=== PATIENT | female | born 1995 | race Caucasian/White ===

== ENCOUNTER 2016-10-25 09:46 | Emergency (ER) | payer BC, OTHER ==
[~2016-10-25] VITALS: Ht 154.9 cm; Wt 55.0 kg
[2016-10-25 09:52] VITALS: Ht 154.9 cm; Wt 55.0 kg
[2016-10-25] MEDS: KETOROLAC 30 MG INJ IV STA ×2 (10:34→11:02)
[2016-10-25 10:46] LABS: BASOPHIL # 0.1 10^3/ul (0.0-0.1); BASOPHILS % 0.8 % (0.0-2.0); EOSINOPHILS % 0.5 % (0.0-7.0); HEMATOCRIT 38.4 % (37.0-47.0); HEMOGLOBIN 13.4 g/dl (12.0-16.0); LYMPHOCYTES # 1.3 10^3/ul (0.8-2.9); LYMPHOCYTES % 16.4 % (15.0-51.0); MEAN CORPUSCULAR HEMOGLOBIN 34.4 pg (29.0-33.0); MEAN CORPUSCULAR HGB CONC 34.9 g/dl (32.0-37.0); MEAN CORPUSCULAR VOLUME 98.7 fl (82.0-101.0); MEAN PLATELET VOLUME 10.4 fl (7.4-10.4); MONOCYTE # 0.4 10^3/ul (0.3-0.9); MONOCYTES % 4.8 % (0.0-11.0); NEUTROPHIL # 6.1 10^3/ul (1.6-7.5); NEUTROPHILS % 77.2 % (39.0-77.0); PLATELET COUNT 255 10^3/UL (140-415); RED BLOOD COUNT 3.89 10^6/ul (4.20-5.40); RED CELL DISTRIBUTION WIDTH 12.5 % (11.5-14.5); WHITE BLOOD COUNT 7.9 10^3/ul (4.8-10.8)
--- NOTE | 2016-10-25 10:54 | RADRPT ---
PROCEDURE: Retroperitoneal ultrasound. CLINICAL INDICATION: Left flank pain, history of renal calculi. TECHNIQUE: [place] scale and color doppler ultrasound images of the retroperitoneum, kidneys, urinary bladder COMPARISON: No prior studies are available for comparison. FINDINGS: Right kidney 10.0 cm in length. Right renal cortical thickness is preserved. Left kidney 10.3 cm in length. Left renal cortical thickness is preserved. Normal echogenicity. No hydronephrosis. No renal calculi. No focal lesions. Bladder: No focal lesions. IMPRESSION: No sonographic evidence of renal calculi or hydronephrosis. Normal examination. RPTAT: AADD .Nico Martínez MD, MD Date Time Electronically viewed and signed by .Nico Martínez MD, on 10/25/2016 10:54 .B/
[2016-10-25 11:02] LABS: ADD UMIC YES; UR ASCORBIC ACID NEGATIVE (NEGATIVE); UR BILIRUBIN (Dip) NEGATIVE (NEGATIVE); UR BLOOD (Dip) 3+ mg/dL (NEGATIVE); UR BUDDING YEAST FEW /HPF (NONE SEEN); UR CLARITY CLOUDY (CLEAR); UR COLOR YELLOW (YELLOW); UR GLUCOSE (Dip) NEGATIVE (NEGATIVE); UR KETONES (Dip) NEGATIVE (NEGATIVE); UR LEUKOCYTE ESTERASE (Dip) NEGATIVE Leu/ul (NEGATIVE); UR MUCUS MODERATE /HPF (NONE SEEN); UR NITRITE (Dip) NEGATIVE (NEGATIVE); UR RBC > 182 /HPF (0-5); UR SPECIFIC GRAVITY (Dip) 1.024 (1.003-1.030); UR SQUAMOUS EPITHELIAL CELL FEW /HPF (FEW); UR TOTAL PROTEIN (Dip) 1+ mg/dl (NEGATIVE); UR UROBILINOGEN (Dip) NEGATIVE (NEGATIVE)
[2016-10-25 11:08] LABS: ALBUMIN 4.7 g/dl (3.3-4.9); ALBUMIN/GLOBULIN RATIO 1.42; BILIRUBIN,INDIRECT 0.7 mg/dl (0-1.1); BILIRUBIN,TOTAL 0.7 mg/dl (0.2-1.3); CREATININE 0.73 mg/dl (0.44-1.00); POTASSIUM 4.1 mmol/L (3.5-5.1)
--- NOTE | 2016-10-25 11:26 | RADRPT ---
PROCEDURE: US Pelvis CLINICAL INDICATION: left pelvic pain TECHNIQUE: Multiple sonographic images of the pelvis were obtained utilizing a transabdominal and endovaginal technique. The images were reviewed on a PACS workstation. COMPARISON: None. LMP: 10/19/2016 FINDINGS: The uterus measures 7.3 x 3.1 x 3.6 cm. The endometrial echo complex measures 5 mm in thickness. T he uterus is heterogeneous and the junctional zone between the endometrium and myometrium is indisti nct. The right ovary measures 3.6 x 1.9 x 2.7 cm. The left ovary measures 3.1 x 1.7 x 2.5 cm. There is no rmal vascular flow in both ovaries. No significant ovarian lesions are seen. There is mild pelvic free fluid. IMPRESSION: The uterus is heterogeneous and the junctional zone between the endometrium and myometrium is indist inct. Clinical correlation for adenomyosis is recommended. Bilateral ovaries and adnexa are unremarkable. RPTAT: EE Physician Asim Date Time Electronically viewed and signed by Physician Asim on 10/25/2016 11:25 /
[2016-10-25] MEDS ORDERED: IBUP800T25 PO (11:34)
[2016-10-25 11:47] VITALS: BP 119/61; PULSE 57; RESP 18; TEMP 98.1
--- NOTE | 2016-10-25 11:55 | ERD ---
ER Documentation Chief Complaint Date/Time DATE: 10/25/16 TIME: 11:41 Chief Complaint CAME IN VIA INTAKE DUE TO LEFT PELVIC PAIN, HX OF KIDNEY STONES HPI 21-year-old female with history of kidney stone is complaining of left pelvic pain since this morning. Patient stated the pain had sudden onset is constant and sharp. Pain is growing in intensity over time. She has nausea but no vomiting. Patient stated that this feels similar to previous kidney stone pain. LMP was 10/19/2016. Denies fever or chills. Denies dysuria. Denies vaginal bleeding. Denies diarrhea or constipation. ROS All systems reviewed and are negative except as per history of present illness. Medications Home Meds Active Scripts Ibuprofen* (Motrin*) 800 Mg Tab, 800 MG PO Q6H Y for PAIN AND OR ELEVATED TEMP, #30 TAB Prov:ANATOLYSTANISLAV. CANINE DEPUTY 10/25/16 Allergies Allergies: Coded Allergies: No Known Allergy (Verified , 10/25/16) PMhx/Soc History of Surgery: Yes (adenoid) Anesthesia Reaction: No Hx Neurological Disorder: No Hx Respiratory Disorders: Yes (asthma) Hx Cardiac Disorders: No Hx Psychiatric Problems: No Hx Miscellaneous Medical Probl: No Hx Alcohol Use: Yes Hx Substance Use: No Hx Tobacco Use: No Smoking Status: Never smoker Physical Exam Vitals Vital Signs Date Time Temp Pulse Resp B/P Pulse Ox O2 Delivery O2 Flow Rate FiO2 10/25/16 09:52 98.4 58 18 121/83 98 Physical Exam General: Well-developed, well-nourished, conscious and coherent, in no distress Skin: Warm and dry without rash, good texture and turgor Head: Normocephalic without evidence of trauma Eyes: Sclera and conjunctivae normal; pupils equal, round, and reactive to light; extraocular movements are intact Chest: Normal AP diameter. Good expansion without retractions. Nontender. Lungs are clear to auscultate bilaterally with good tidal volume Heart: Regular rate and rhythm. No murmur, rub, or gallops heard Abdomen: Soft and nontender without masses, guarding, or rebound. Bowel sounds are active. No hepatosplenomegaly Back: Without spinal or CVA tenderness Pelvis: Left pelvic tenderness without rebound or guarding. Extremities: Full range of motion. Good strength bilaterally. No clubbing, cyanosis, or edema. Peripheral pulses are intact. Sensation intact Neuro: Alert and oriented 4, GCS 15. Cranial nerves grossly intact. Motor and sensory exams nonfocal. Moves all extremities. Speech clear. Gait normal Result Diagram: 10/25/16 1030 10/25/16 1030 Results 24 hrs Laboratory Tests Test 10/25/16 10:30 White Blood Count 7.910^3/ul Red Blood Count 3.8910^6/ul Hemoglobin 13.4g/dl Hematocrit 38.4% Mean Corpuscular Volume 98.7fl Mean Corpuscular Hemoglobin 34.4pg Mean Corpuscular Hemoglobin Concent 34.9g/dl Red Cell Distribution Width 12.5% Platelet Count 59668^3/UL Mean Platelet Volume 10.4fl Neutrophils % 77.2% Lymphocytes % 16.4% Monocytes % 4.8% Eosinophils % 0.5% Basophils % 0.8% Nucleated Red Blood Cells % 0.0/100WBC Neutrophils # 6.110^3/ul Lymphocytes # 1.310^3/ul Monocytes # 0.410^3/ul Eosinophils # 0.010^3/ul Basophils # 0.110^3/ul Nucleated Red Blood Cells # 0.010^3/ul Urine Color YELLOW Urine Clarity CLOUDY Urine pH 5.0 Urine Specific [place] 1.024 Urine Ketones NEGATIVEmg/dL Urine Nitrite NEGATIVEmg/dL Urine Bilirubin NEGATIVEmg/dL Urine Urobilinogen NEGATIVEmg/dL Urine Leukocyte Esterase NEGATIVELeu/ul Urine Microscopic RBC > 182/HPF Urine Microscopic WBC 12/HPF Urine Squamous Epithelial Cells FEW/HPF Urine Mucus MODERATE/HPF Urine Yeast (Budding) FEW/HPF Urine Hemoglobin 3+mg/dL Urine Glucose NEGATIVEmg/dL Urine Total Protein 1+mg/dl Sodium Level 143mmol/L Potassium Level 4.1mmol/L Chloride Level 102mmol/L Carbon Dioxide Level 25mmol/L Anion Gap 20 Blood Urea Nitrogen 20mg/dl Creatinine 0.73mg/dl Glucose Level 100mg/dl Calcium Level 10.0mg/dl Total Bilirubin 0.7mg/dl Direct Bilirubin 0.00mg/dl Indirect Bilirubin 0.7mg/dl Aspartate Amino Transf (AST/SGOT) 30IU/L Alanine Aminotransferase (ALT/SGPT) 27IU/L Alkaline Phosphatase 72IU/L Total Protein 8.0g/dl Albumin 4.7g/dl Globulin 3.30g/dl Albumin/Globulin Ratio 1.42 Lipase 84U/L Current Medications Medications (Trade) Dose Ordered Sig/Misha Route PRN Reason Start Time Stop Time Status Last Admin Dose Admin Ketorolac Tromethamine (Toradol) 30 mg ONCE STAT IV 10/25/16 10:06 10/25/16 10:10 DC 10/25/16 11:02 PROCEDURE: Retroperitoneal ultrasound. CLINICAL INDICATION: Left flank pain, history of renal calculi. TECHNIQUE: [place] scale and color doppler ultrasound images of the retroperitoneum, kidneys, urinary bladder COMPARISON: No prior studies are available for comparison. FINDINGS: Right kidney 10.0 cm in length. Right renal cortical thickness is preserved. Left kidney 10.3 cm in length. Left renal cortical thickness is preserved. Normal echogenicity. No hydronephrosis. No renal calculi. No focal lesions. Bladder: No focal lesions. IMPRESSION: No sonographic evidence of renal calculi or hydronephrosis. Normal examination. RPTAT: AADD .Nico Martínez MD, MD Date Time Electronically viewed and signed by .Nico Martínez MD, MD on 10/25/2016 10:54 .B/ CC: STANISLAV LEDBETTER NP PROCEDURE: US Pelvis CLINICAL INDICATION: left pelvic pain TECHNIQUE: Multiple sonographic images of the pelvis were obtained utilizing a transabdominal and endovaginal technique. The images were reviewed on a PACS workstation. COMPARISON: None. LMP: 10/19/2016 FINDINGS: The uterus measures 7.3 x 3.1 x 3.6 cm. The endometrial echo complex measures 5 mm in thickness. The uterus is heterogeneous and the junctional zone between the endometrium and myometrium is indistinct. The right ovary measures 3.6 x 1.9 x 2.7 cm. The left ovary measures 3.1 x 1.7 x 2.5 cm. There is normal vascular flow in both ovaries. No significant ovarian lesions are seen. There is mild pelvic free fluid. IMPRESSION: The uterus is heterogeneous and the junctional zone between the endometrium and myometrium is indistinct. Clinical correlation for adenomyosis is recommended. Bilateral ovaries and adnexa are unremarkable. RPTAT: EE Kirill Akers Physician Date Time Electronically viewed and signed by Kirill Akers Physician on 10/25/2016 11:25 RA/ CC: STANISLAV LEDBETTER CANINE DEPUTY Procedures/MDM Well-appearing 21-year-old female with history of kidney stones presented ED was left pelvic pain 1 day. Urine test is negative, I doubt ectopic . CBC, CMP, and lipase are unremarkable. UA has 3+ hemoglobin, greater than 182 RBC, otherwise unremarkable. Renal ultrasound is negative for has no evidence of renal calculi or hydronephrosis. Pelvic ultrasound shows unremarkable ovaries and adnexa. Heterogeneous uterus with indistinct junction zone between endometrium and myometrium, concerning for adenomyosis. Patient is given Toradol 30 mg IV in the ED for pain. Patient reports much improved pain after Toradol. I suspect patient's pain is due to urolithiasis. I doubt ovarian torsion or ruptured ovarian cyst. Patient appears well, stable for discharge and outpatient management. Medical decision making shared with patient and family. Education provided to patient and family. Patient and family expressed understanding of the plan. Medications on discharge: Ibuprofen. Follow-up: Primary care provider in 2-3 days or return to ED if worse. Disclaimer: Inadvertent spelling and grammatical errors are likely due to EHR/ dictation software use and do not reflect on the overall quality of patient care. Also, please note that the electronic time recorded on this note does not necessarily reflect the actual time of the patient encounter. Departure Diagnosis: Primary Impression: Acute pain in female pelvis Condition: Stable Patient Instructions: Pelvic Pain, Unknown Cause, Kidney Stone W/ Colic Referrals: DOCTOR,NOT ON STAFF (PCP) COMM[facility]ITY [facility] YOU HAVE RECEIVED A MEDICAL SCREENING EXAM AND THE RESULTS INDICATE THAT YOU DO NOT HAVE A CONDITION THAT REQUIRES URGENT TREATMENT IN THE EMERGENCY DEPARTMENT. FURTHER EVALUATION AND TREATMENT OF YOUR CONDITION CAN WAIT UNTIL YOU ARE SEEN IN YOUR DOCTORS OFFICE WITHIN THE NEXT 1-2 DAYS. IT IS YOUR RESPONSIBILITY TO MAKE AN APPOINTMENT FOR FOLOW-UP CARE. IF YOU HAVE A PRIMARY DOCTOR --you should call your primary doctor and schedule an appointment IF YOU DO NOT HAVE A PRIMARY DOCTOR YOU CAN CALL OUR PHYSICIAN REFERRAL HOTLINE AT IF YOU CAN NOT AFFORD TO SEE A PHYSICIAN YOU CAN CHOSE FROM THE FOLLOWING [facility] [address] [facility] [address] [facility] [address] [facility] [address] [facility]. [facility] [address], [facility]. [facility]. [address] Additional Instructions: Call your primary care doctor TOMORROW for an appointment during the next 2-3 days.See the doctor sooner or return here if your condition worsens before your appointment time. STANISLAV LEDBETTER NP Oct 25, 2016 11:51
== END 2016-10-25 11:48 | disposition home or self-care (01) ==
LOC: FTE 09:46
DX: R10.2 Pelvic and perineal pain (principal); J45.909 Unspecified asthma, uncomplicated
CPT/HCPCS: 36415; 76775; 76830; 76856; 80053; 81001; 83690; 85025; 96374; J1885; Z7502

== ENCOUNTER 2016-11-02 19:03 | Emergency (ER) | END 2016-11-02 22:12 | disposition home or self-care (01) | DX: N20.0 Calculus of kidney (principal); J45.909 Unspecified asthma, uncomplicated | CPT/HCPCS: 36415; 76775; 76830; 76856; 80053; 81001; 83690; 85025; 96374; 96375; 96376; J1885; J2270; J2405; J7030; Z7502 ==

== ENCOUNTER 2016-12-30 10:55 | Emergency (ER) | payer OTHER ==
[~2016-12-30] VITALS: Ht 154.9 cm; Wt 55.0 kg
[~2016-12-30 10:55] MED LIST: HYDR-906 PO; IBUP800T25 PO; ONDA4TAB14 PO; TAMS-14 PO
[2016-12-30 11:12] VITALS: Ht 154.9 cm; Wt 55.0 kg
[2016-12-30] MEDS ORDERED: KETOROLAC 30 MG INJ IV STA (11:35)
[2016-12-30] MEDS ORDERED: morphine 4 MG/ML VIAL IV STA ×2 (11:35→14:37)
[2016-12-30] MEDS ORDERED: ONDANSETRON 4 MG INJ IV STA (11:35)
[2016-12-30] MEDS ORDERED: SOD CHLORIDE 0.9% 1,000 ML IV STA (11:35)
[2016-12-30 12:08] LABS: BASOPHIL # 0.1 10^3/ul (0.0-0.1); BASOPHILS % 0.7 % (0.0-2.0); EOSINOPHILS % 0.4 % (0.0-7.0); HEMATOCRIT 39.6 % (37.0-47.0); HEMOGLOBIN 13.3 g/dl (12.0-16.0); LYMPHOCYTES # 2.1 10^3/ul (0.8-2.9); LYMPHOCYTES % 21.1 % (15.0-51.0); MEAN CORPUSCULAR HEMOGLOBIN 32.8 pg (29.0-33.0); MEAN CORPUSCULAR HGB CONC 33.6 g/dl (32.0-37.0); MEAN CORPUSCULAR VOLUME 97.5 fl (82.0-101.0); MEAN PLATELET VOLUME 10.2 fl (7.4-10.4); MONOCYTE # 0.6 10^3/ul (0.3-0.9); MONOCYTES % 5.7 % (0.0-11.0); NEUTROPHIL # 7.1 10^3/ul (1.6-7.5); NEUTROPHILS % 71.4 % (39.0-77.0); PLATELET COUNT 262 10^3/UL (140-415); RED BLOOD COUNT 4.06 10^6/ul (4.20-5.40); RED CELL DISTRIBUTION WIDTH 12.4 % (11.5-14.5); WHITE BLOOD COUNT 9.9 10^3/ul (4.8-10.8)
[2016-12-30 12:28] LABS: ALBUMIN 4.8 g/dl (3.3-4.9); ALBUMIN/GLOBULIN RATIO 1.37; CALCIUM 9.8 mg/dl (8.4-10.2); CREATININE 0.8 mg/dl (0.44-1.00); POTASSIUM 3.9 mmol/L (3.5-5.1); TOTAL PROTEIN 8.3 g/dl (6.1-8.1)
[2016-12-30 13:04] LABS: ADD UMIC YES; UR ASCORBIC ACID 20 mg/dL (NEGATIVE); UR BACTERIA FEW /HPF (NONE SEEN); UR BILIRUBIN (Dip) NEGATIVE (NEGATIVE); UR BLOOD (Dip) 3+ mg/dL (NEGATIVE); UR BUDDING YEAST FEW /HPF (NONE SEEN); UR CLARITY CLOUDY (CLEAR); UR COLOR YELLOW (YELLOW); UR GLUCOSE (Dip) NEGATIVE (NEGATIVE); UR KETONES (Dip) NEGATIVE (NEGATIVE); UR LEUKOCYTE ESTERASE (Dip) NEGATIVE Leu/ul (NEGATIVE); UR MUCUS MODERATE /HPF (NONE SEEN); UR NITRITE (Dip) NEGATIVE (NEGATIVE); UR RBC 89 /HPF (0-5); UR SPECIFIC GRAVITY (Dip) 1.025 (1.003-1.030); UR SQUAMOUS EPITHELIAL CELL FEW /HPF (FEW); UR TOTAL PROTEIN (Dip) 1+ mg/dl (NEGATIVE); UR UROBILINOGEN (Dip) NEGATIVE (NEGATIVE)
--- NOTE | 2016-12-30 13:52 | RADRPT ---
PROCEDURE: XR Abdomen. CLINICAL INDICATION: Flank pain TECHNIQUE: Single frontal view of the abdomen was obtained. COMPARISON: Ultrasound from 11/02/2016 FINDINGS: The bowel gas pattern is normal. There is no evidence of obstruction. There are no air-fluid levels. There is a 3 mm calcification in the left lower pelvis. The left kidney is partially obscured by ove rlying bowel gas. The soft tissues are unremarkable. The osseous structures are unremarkable. RPTAT: AA IMPRESSION: 3 mm calcification in the left lower pelvis, may represent a left distal ureteral stone. Left kidney is partially obscured by overlying bowel gas. Further evaluation with CT is recommended. .Victoriano Rothman MD, MD Date Time Electronically viewed and signed by .Victoriano Rothman MD, on 12/30/2016 13:52 .S/
--- NOTE | 2016-12-30 14:13 | RADRPT ---
PROCEDURE: Retroperitoneal US. CLINICAL INDICATION: Flank pain TECHNIQUE: Multiple sonographic images of the kidneys and retroperitoneum were obtained. The imag es were reviewed on a PACS workstation. COMPARISON: US ABDOMEN 11/02/2016 FINDINGS: The kidneys are normal in size, contour, cortical thickness and cortical echogenicity. The right kidney measures 10.9 cm. The left kidney measures 11.1 cm. No kidney stones are visualized. There is questionable mild left-sided hydronephrosis. The urinary bladder is normal. RPTAT: AA IMPRESSION: Questionable mild left-sided hydronephrosis. .Victoriano Rothman MD, MD Date Time Electronically viewed and signed by .Victoriano Rothman MD, on 12/30/2016 14:12 .S/
[2016-12-30] MEDS ORDERED: TRAM50TA2 PO (14:25)
[2016-12-30] MEDS ORDERED: IBUP400T22 PO (14:25)
[2016-12-30] MEDS ORDERED: ONDA8TAB14 PO (14:25)
--- NOTE | 2016-12-30 14:33 | ERD ---
ER Documentation Chief Complaint Date/Time DATE: 12/30/16 TIME: 14:30 Chief Complaint LEFT SIDED FLANK PAIN WITH HX OF KIDNEY STONES HPI 21-year-old female presents with sudden onset left flank pain starting this morning. History significant for diagnosis of kidney stone twice in the last month. She denies any fevers or dysuria. She has had trouble getting referral from her primary doctor for urologist. She declined CT scans in the past and ultrasound showed possible 1 cm stone or shadowing on the last ultrasound. ROS All systems reviewed and are negative except as per history of present illness. Medications Home Meds Active Scripts Ibuprofen* (Motrin*) 400 Mg Tab, 400 MG PO Q6, #20 TAB Prov:PREMA QUINN MD 12/30/16 Tramadol HCl (Tramadol HCl) 50 Mg Tablet, 50 MG PO Q4 Y for PAIN, #20 TAB Prov:PREMA QUINN MD 12/30/16 Ondansetron (Ondansetron Odt) 8 Mg Tab.rapdis, 8 MG PO Q6H Y for NAUSEA AND/OR VOMITING, #10 TAB Prov:PREMA QUINN MD 12/30/16 Tamsulosin Hcl* (Flomax*) 0.4 Mg Cap.er.24h, 0.4 MG PO BID, #30 CAP Prov:YUNIER MAHAN PA-C 11/02/16 Ondansetron (Ondansetron Odt) 4 Mg Tab.rapdis, 4 MG PO Q6H Y for NAUSEA AND/OR VOMITING, #10 TAB Prov:YUNIER MAHAN PA-C 11/02/16 Hydrocodone/Acetaminophen ([place] 5-325 Tablet) 1 Each Tablet, 1 TAB PO Q6H Y for PAIN, #7 TAB Prov:YUNIER MAHAN PA-C 11/02/16 Ibuprofen* (Motrin*) 800 Mg Tab, 800 MG PO Q6H Y for PAIN AND OR ELEVATED TEMP, #30 TAB Prov:STANISLAV LEDBETTER NP 10/25/16 Allergies Allergies: Coded Allergies: No Known Allergy (Verified , 10/25/16) PMhx/Soc History of Surgery: Yes (adenoid) Anesthesia Reaction: No Hx Neurological Disorder: No Hx Respiratory Disorders: Yes (asthma) Hx Cardiac Disorders: No Hx Psychiatric Problems: No Hx Miscellaneous Medical Probl: No Hx Alcohol Use: Yes Hx Substance Use: No Hx Tobacco Use: No Physical Exam Vitals Vital Signs Date Time Temp Pulse Resp B/P Pulse Ox O2 Delivery O2 Flow Rate FiO2 12/30/16 13:19 98.3 57 16 108/58 99 Room Air 12/30/16 11:12 98.1 58 18 133/86 98 Physical Exam Const: [], uncomfortable but no apparent distress. Head: Atraumatic Eyes: Normal Conjunctiva ENT: Normal External Ears, Nose and Mouth. Neck: Full range of motion..~ No meningismus. Resp: Clear to auscultation bilaterally Cardio: Regular rate and rhythm, no murmurs Abd: Soft, non tender, non distended. Normal bowel sounds. No tenderness at McBurney's point no Schumacher sigN Skin: No petechiae or rashes Back: No midline enters. There is tenderness and left CVA and left mid abdomen. n. Ext: No cyanosis, or edema Neur: Awake and alert Psych: Normal Mood and Affect Result Diagram: 12/30/16 1145 12/30/16 1145 Results 24 hrs Laboratory Tests Test 12/30/16 11:45 White Blood Count 9.910^3/ul Red Blood Count 4.0610^6/ul Hemoglobin 13.3g/dl Hematocrit 39.6% Mean Corpuscular Volume 97.5fl Mean Corpuscular Hemoglobin 32.8pg Mean Corpuscular Hemoglobin Concent 33.6g/dl Red Cell Distribution Width 12.4% Platelet Count 95109^3/UL Mean Platelet Volume 10.2fl Neutrophils % 71.4% Lymphocytes % 21.1% Monocytes % 5.7% Eosinophils % 0.4% Basophils % 0.7% Nucleated Red Blood Cells % 0.0/100WBC Neutrophils # 7.110^3/ul Lymphocytes # 2.110^3/ul Monocytes # 0.610^3/ul Eosinophils # 0.010^3/ul Basophils # 0.110^3/ul Nucleated Red Blood Cells # 0.010^3/ul Urine Color YELLOW Urine Clarity CLOUDY Urine pH 5.0 Urine Specific [place] 1.025 Urine Ketones NEGATIVEmg/dL Urine Nitrite NEGATIVEmg/dL Urine Bilirubin NEGATIVEmg/dL Urine Urobilinogen NEGATIVEmg/dL Urine Leukocyte Esterase NEGATIVELeu/ul Urine Microscopic RBC 89/HPF Urine Microscopic WBC 8/HPF Urine Squamous Epithelial Cells FEW/HPF Urine Bacteria FEW/HPF Urine Mucus MODERATE/HPF Urine Yeast (Budding) FEW/HPF Urine Hemoglobin 3+mg/dL Urine Glucose NEGATIVEmg/dL Urine Total Protein 1+mg/dl Sodium Level 139mmol/L Potassium Level 3.9mmol/L Chloride Level 105mmol/L Carbon Dioxide Level 23mmol/L Anion Gap 15 Blood Urea Nitrogen 17mg/dl Creatinine 0.80mg/dl Glucose Level 127mg/dl Calcium Level 9.8mg/dl Total Bilirubin 1.0mg/dl Direct Bilirubin 0.00mg/dl Indirect Bilirubin 1.0mg/dl Aspartate Amino Transf (AST/SGOT) 27IU/L Alanine Aminotransferase (ALT/SGPT) 28IU/L Alkaline Phosphatase 81IU/L Total Protein 8.3g/dl Albumin 4.8g/dl Globulin 3.50g/dl Albumin/Globulin Ratio 1.37 Lipase 77U/L Current Medications Medications (Trade) Dose Ordered Sig/Misha Route PRN Reason Start Time Stop Time Status Last Admin Dose Admin Sodium Chloride (NS) 1,000 ml @ 1,000 mls/hr Q1H STAT IV 12/30/16 11:35 12/30/16 12:34 DC 12/30/16 11:58 Morphine Sulfate (morphine) 4 mg ONCE STAT IV 12/30/16 11:35 12/30/16 11:36 DC 12/30/16 11:59 Ondansetron HCl (Zofran Inj) 4 mg ONCE STAT IV 12/30/16 11:35 12/30/16 11:36 DC 12/30/16 11:58 Ketorolac Tromethamine (Toradol) 30 mg ONCE STAT IV 12/30/16 11:35 12/30/16 11:36 DC 12/30/16 11:58 Procedures/MDM IV was obtained. Patient was given Toradol 30 mg IV, morphine 4 mg IV and Zofran 4 mg IV. HCG is negative. CBC is normal CMP is normal. Urine shows hemoglobin without significant signs of infection and no glucose. Patient was given 1 L normal saline IV. Patient felt better after observation treatment. Left renal ultrasound shows mild hydronephrosis without identifiable stones. X-ray Abdomen 1V Interpreted by me: Free Air: [None] Bowel Gas: [Nonspecific] Soft Tissue: [Normal] possible 3 mm stone at the left UV junction.-Possible left 3 mm calculus at left UV junction. She presents with signs and symptoms of likely renal colic without signs of septic stone, signs of appendicitis or acute abdomen. She will treated with tramadol, Zofran, ibuprofen, instructions for fluids and neurology follow-up. She should return for fevers, vomiting, worsening pain, new worsening symptoms with primary care doctor this week. The patient was stable with no new complaints during the ER course. Clinically, there is no current evidence to suggest meningitis, sepsis, acute abdomen, pneumonia, acute coronary syndrome, pulmonary embolism, or any other emergent condition appearing to require further evaluation or hospitalization. The patient should certainly return for any new or worsening symptoms per the aftercare instructions. They should otherwise follow-up with her primary care doctor for reevaluation this week. Departure Diagnosis: Primary Impression: Renal colic Additional Impression: Flank pain Condition: Stable Patient Instructions: Kidney Stone W/ Colic Referrals: VAIBHAV DE ANDA MD,CHRISTY DARNELL,PAULY Mohan MD Additional Instructions: X-ray shows possible 3 mm stone in the left distal ureter. Recheck for fevers, vomiting, worsening pain. See urology for follow-up. Drink plenty of fluids at home. PREMA QUINN MD Dec 30, 2016 14:33
[2016-12-30 15:35] VITALS: BP 99/50; PULSE 61; RESP 17; TEMP 98.7
== END 2016-12-30 15:42 | disposition home or self-care (01) ==
LOC: FTE 10:55
DX: N23 Unspecified renal colic (principal); J45.909 Unspecified asthma, uncomplicated
CPT/HCPCS: 36415; 74000; 76775; 80053; 81001; 83690; 85025; 96374; 96375; 96376; J1885; J2270; J2405; J7030; Z7502

== ENCOUNTER 2017-01-07 23:47 | Emergency (ER) | payer OTHER ==
[~2017-01-07] VITALS: Ht 154.9 cm; Wt 55.0 kg
[~2017-01-07 23:47] MED LIST changes: +IBUP400T22 PO; +ONDA8TAB14 PO; +TRAM50TA2 PO
[2017-01-07 23:54] VITALS: Ht 154.9 cm; Wt 55.0 kg
[2017-01-08] MEDS ORDERED: ONDANSETRON 4 MG INJ IV STA (02:29)
[2017-01-08] MEDS ORDERED: KETOROLAC 30 MG INJ IV STA (02:29)
[2017-01-08] MEDS ORDERED: morphine 4 MG/ML VIAL IV STA (02:29)
[2017-01-08] MEDS ORDERED: SOD CHLORIDE 0.9% 1,000 ML IV STA (02:29)
[2017-01-08 02:34] VITALS: TEMP 98.7
[2017-01-08 02:58] LABS: BASOPHIL # 0.1 10^3/ul (0.0-0.1); BASOPHILS % 0.4 % (0.0-2.0); EOSINOPHILS % 0.1 % (0.0-7.0); HEMATOCRIT 37.3 % (37.0-47.0); HEMOGLOBIN 13.3 g/dl (12.0-16.0); LYMPHOCYTES # 1.6 10^3/ul (0.8-2.9); LYMPHOCYTES % 10.1 % (15.0-51.0); MEAN CORPUSCULAR HEMOGLOBIN 34.2 pg (29.0-33.0); MEAN CORPUSCULAR HGB CONC 35.7 g/dl (32.0-37.0); MEAN CORPUSCULAR VOLUME 95.9 fl (82.0-101.0); MEAN PLATELET VOLUME 10.6 fl (7.4-10.4); MONOCYTE # 1.4 10^3/ul (0.3-0.9); MONOCYTES % 8.8 % (0.0-11.0); NEUTROPHIL # 12.7 10^3/ul (1.6-7.5); NEUTROPHILS % 80.2 % (39.0-77.0); PLATELET COUNT 308 10^3/UL (140-415); RED BLOOD COUNT 3.89 10^6/ul (4.20-5.40); RED CELL DISTRIBUTION WIDTH 11.9 % (11.5-14.5); WHITE BLOOD COUNT 15.9 10^3/ul (4.8-10.8)
[2017-01-08 03:06] LABS: ADD UMIC YES; UR ASCORBIC ACID 40 mg/dL (NEGATIVE); UR BACTERIA FEW /HPF (NONE SEEN); UR BILIRUBIN (Dip) NEGATIVE (NEGATIVE); UR BLOOD (Dip) 2+ mg/dL (NEGATIVE); UR CLARITY SLIGHTLY CLOUDY (CLEAR); UR COLOR YELLOW (YELLOW); UR GLUCOSE (Dip) NEGATIVE (NEGATIVE); UR KETONES (Dip) 1+ mg/dL (NEGATIVE); UR LEUKOCYTE ESTERASE (Dip) NEGATIVE Leu/ul (NEGATIVE); UR MUCUS MANY /HPF (NONE SEEN); UR NITRITE (Dip) NEGATIVE (NEGATIVE); UR RBC 50 /HPF (0-5); UR SQUAMOUS EPITHELIAL CELL FEW /HPF (FEW); UR TOTAL PROTEIN (Dip) 1+ mg/dl (NEGATIVE); UR UROBILINOGEN (Dip) NEGATIVE (NEGATIVE)
[2017-01-08 03:22] LABS: ALBUMIN 4.8 g/dl (3.3-4.9); ALBUMIN/GLOBULIN RATIO 1.29; BILIRUBIN,INDIRECT 0.7 mg/dl (0-1.1); BILIRUBIN,TOTAL 0.7 mg/dl (0.2-1.3); CREATININE 1.15 mg/dl (0.44-1.00); POTASSIUM 4.2 mmol/L (3.5-5.1); TOTAL PROTEIN 8.5 g/dl (6.1-8.1)
--- NOTE | 2017-01-08 05:17 | ERD ---
ER Documentation Chief Complaint Date/Time DATE: 01/08/17 TIME: 05:16 Chief Complaint c/o left side flank pain x 2 hrs. Hx of kidney stones. HPI 21-year-old female comes in with left-sided appointment for 2 hours. Patient history of kidney stones and has decided to have [facility]. She denies any fevers or chills. She has mild nausea but no vomiting. Pain is mild to moderate intensity in the left flank that radiates down to her groin. ROS All systems reviewed and are negative except as per history of present illness. Medications Home Meds Active Scripts Ibuprofen* (Motrin*) 400 Mg Tab, 400 MG PO Q6, #20 TAB Prov:PREMA QUINN MD 12/30/16 Tramadol HCl (Tramadol HCl) 50 Mg Tablet, 50 MG PO Q4 Y for PAIN, #20 TAB Prov:PREMA QUINN MD 12/30/16 Ondansetron (Ondansetron Odt) 8 Mg Tab.rapdis, 8 MG PO Q6H Y for NAUSEA AND/OR VOMITING, #10 TAB Prov:PREMA QUINN MD 12/30/16 Tamsulosin Hcl* (Flomax*) 0.4 Mg Cap.er.24h, 0.4 MG PO BID, #30 CAP Prov:YUNIER MAHAN PA-C 11/02/16 Ondansetron (Ondansetron Odt) 4 Mg Tab.rapdis, 4 MG PO Q6H Y for NAUSEA AND/OR VOMITING, #10 TAB Prov:YUNIER MAHAN PA-C 11/02/16 Hydrocodone/Acetaminophen ([place] 5-325 Tablet) 1 Each Tablet, 1 TAB PO Q6H Y for PAIN, #7 TAB Prov:YUNIER MAHAN PA-C 11/02/16 Ibuprofen* (Motrin*) 800 Mg Tab, 800 MG PO Q6H Y for PAIN AND OR ELEVATED TEMP, #30 TAB Prov:STANISLAV LEDBETTER NP 10/25/16 Allergies Allergies: Coded Allergies: No Known Allergy (Verified , 10/25/16) PMhx/Soc History of Surgery: Yes (adenoid) Anesthesia Reaction: No Hx Neurological Disorder: No Hx Respiratory Disorders: Yes (asthma) Hx Cardiac Disorders: No Hx Psychiatric Problems: Yes (Kidney stones) Hx Miscellaneous Medical Probl: No Hx Alcohol Use: Yes Hx Substance Use: No Hx Tobacco Use: No Smoking Status: Never smoker Physical Exam Vitals Vital Signs Date Time Temp Pulse Resp B/P Pulse Ox O2 Delivery O2 Flow Rate FiO2 01/08/17 02:34 98.7 74 16 107/55 98 Room Air 01/07/17 23:54 98.3 75 18 137/71 97 Physical Exam Const: [] Head: Atraumatic Eyes: Normal Conjunctiva ENT: Normal External Ears, Nose and Mouth. Neck: Full range of motion..~ No meningismus. Resp: Clear to auscultation bilaterally Cardio: Regular rate and rhythm, no murmurs Abd: Soft, non tender, non distended. Normal bowel sounds Skin: No petechiae or rashes Back: No midline or flank tenderness Ext: No cyanosis, or edema Neur: Awake and alert Psych: Normal Mood and Affect Result Diagram: 01/08/1722401/08/17224 Results 24 hrs Laboratory Tests Test 01/08/17 02:25 White Blood Count 15.910^3/ul Red Blood Count 3.8910^6/ul Hemoglobin 13.3g/dl Hematocrit 37.3% Mean Corpuscular Volume 95.9fl Mean Corpuscular Hemoglobin 34.2pg Mean Corpuscular Hemoglobin Concent 35.7g/dl Red Cell Distribution Width 11.9% Platelet Count 95763^3/UL Mean Platelet Volume 10.6fl Neutrophils % 80.2% Lymphocytes % 10.1% Monocytes % 8.8% Eosinophils % 0.1% Basophils % 0.4% Nucleated Red Blood Cells % 0.0/100WBC Neutrophils # 12.710^3/ul Lymphocytes # 1.610^3/ul Monocytes # 1.410^3/ul Eosinophils # 0.010^3/ul Basophils # 0.110^3/ul Nucleated Red Blood Cells # 0.010^3/ul Urine Color YELLOW Urine Clarity SLIGHTLY CLOUDY Urine pH 5.0 Urine Specific [place] 1.030 Urine Ketones 1+mg/dL Urine Nitrite NEGATIVEmg/dL Urine Bilirubin NEGATIVEmg/dL Urine Urobilinogen NEGATIVEmg/dL Urine Leukocyte Esterase NEGATIVELeu/ul Urine Microscopic RBC 50/HPF Urine Microscopic WBC 8/HPF Urine Squamous Epithelial Cells FEW/HPF Urine Bacteria FEW/HPF Urine Mucus MANY/HPF Urine Hemoglobin 2+mg/dL Urine Glucose NEGATIVEmg/dL Urine Total Protein 1+mg/dl Sodium Level 141mmol/L Potassium Level 4.2mmol/L Chloride Level 104mmol/L Carbon Dioxide Level 21mmol/L Anion Gap 20 Blood Urea Nitrogen 23mg/dl Creatinine 1.15mg/dl Glucose Level 106mg/dl Calcium Level 10.0mg/dl Total Bilirubin 0.7mg/dl Direct Bilirubin 0.00mg/dl Indirect Bilirubin 0.7mg/dl Aspartate Amino Transf (AST/SGOT) 29IU/L Alanine Aminotransferase (ALT/SGPT) 28IU/L Alkaline Phosphatase 84IU/L Total Protein 8.5g/dl Albumin 4.8g/dl Globulin 3.70g/dl Albumin/Globulin Ratio 1.29 Lipase 60U/L Current Medications Medications (Trade) Dose Ordered Sig/Misha Route PRN Reason Start Time Stop Time Status Last Admin Dose Admin Sodium Chloride (NS) 1,000 ml @ 1,000 mls/hr Q1H STAT IV 01/08/17 02:29 01/08/17 03:28 DC 01/08/17 02:46 Morphine Sulfate (morphine) 4 mg ONCE STAT IV 01/08/17 02:29 01/08/17 02:31 DC 01/08/17 02:45 Ondansetron HCl (Zofran Inj) 4 mg ONCE STAT IV 01/08/17 02:29 01/08/17 02:31 DC 01/08/17 02:44 Ketorolac Tromethamine (Toradol) 30 mg ONCE STAT IV 01/08/17 02:29 01/08/17 02:31 DC 01/08/17 02:44 Procedures/MDM Low decision-makin year female with renal colic. At this point pain is resolved. Patient will be discharged home to follow-up with urology. Return 8 hours for serial abdominal exams. Departure Diagnosis: Primary Impression: Flank pain Condition: Stable JESSASHTYNSANDRAMARKIECatie Jan 08, 2017 05:17
[2017-01-08] MEDS ORDERED: TAMS-14 PO (05:27)
[2017-01-08] MEDS ORDERED: HYDR-902 PO (05:27)
[2017-01-08] MEDS ORDERED: ONDA4TAB14 PO (05:27)
[2017-01-08] MEDS ORDERED: IBUP800T25 PO (05:27)
[2017-01-08 05:30] VITALS: BP 110/62; PULSE 72; RESP 16
[2017-01-08] MEDS ORDERED: ONDANSETRON (ODT) 4 MG TAB ODT STA (05:32)
== END 2017-01-08 05:41 | disposition home or self-care (01) ==
LOC: E/R 23:47
DX: N23 Unspecified renal colic (principal); J45.909 Unspecified asthma, uncomplicated; R11.0 Nausea
CPT/HCPCS: 36415; 80053; 81001; 83690; 85025; 96374; 96375; 96376; J1885; J2270; J2405; J7030; Z7502; Z7610

== ENCOUNTER 2017-05-21 08:57 | Emergency (ER) | END 2017-05-21 13:46 | disposition left against medical advice (07) ==

== ENCOUNTER 2017-05-22 02:57 | Emergency (ER) | END 2017-05-22 05:18 | disposition home or self-care (01) ==

== ENCOUNTER 2017-05-31 22:03 | Emergency (ER) | END 2017-06-01 04:00 | disposition left against medical advice (07) ==